=== PATIENT | male | born 1965 | race Caucasian/White ===

== ENCOUNTER 2025-07-21 11:52 | Emergency (ER) | payer OTHER ==
[~2025-07-21] VITALS: Ht 162.6 cm; Wt 68.0 kg
[~2025-07-21 11:52] MED LIST: PRAVASTATIN SOD40 MG PO
[2025-07-21 11:57] VITALS: TEMP 97.9
[2025-07-21 12:23] LABS: BASOPHILS % 0.4 % (0.0-1.0); EOSINOPHILS % 2.1 % (0.0-6.0); LYMPHOCYTES % 12.5 % (18.0-39.1); MONOCYTES % 13.4 % (4.4-11.3); NEUTROPHILS % 71.2 % (38.7-80.0); RED CELL DISTRIBUTION WIDTH 13.0 % (11.7-14.4)
[2025-07-21 12:41] LABS: EST GLOMERULAR FILTRATION RATE 78 ML/MIN (>=60)
[2025-07-21] MEDS ORDERED: IOPAMIDOL 370 MG/ML 100 ML INFUS..BTL INJ ONE (13:32)
[2025-07-21 13:42] LABS: CORONAVIRUS COVID-19 AG NEGATIVE (NEGATIVE)
[2025-07-21 14:00] VITALS: PULSE 70; RESP 14
[2025-07-21 15:00] VITALS: BP 131/95; PULSE 68; RESP 18; O2SAT 100
== END 2025-07-21 16:00 | disposition home or self-care (01) ==
LOC: ER 11:56
DX: R06.02 Shortness of breath (principal); R07.89 Other chest pain; E78.00 Pure hypercholesterolemia, unspecified; R94.31 Abnormal electrocardiogram [ECG] [EKG]; Z11.52 Encounter for screening for COVID-19
CPT/HCPCS: 36415; 71260; 80053; 82550; 83690; 83880; 84484; 85025; 87426; 93005; 99284; Q9967